=== PATIENT | male | born 1950 | race Caucasian/White ===

== ENCOUNTER 2020-02-16 07:10 | Emergency (ER) | payer OTHER, MEDICARE ==
[~2020-02-16] VITALS: Ht 180.3 cm; Wt 75.0 kg
[2020-02-16 07:31] VITALS: BP 140/78
[2020-02-16] MEDS ORDERED: acetaminophen 325mg tablet PO ONE (07:55)
[2020-02-16] MEDS ORDERED: TETanus/Pertussis (Acell)/Diphther VAC/PF (Tdap-Adult) 0.5ml syringe IMVAC ONE (08:25)
[2020-02-16] MEDS ORDERED: LIDOcaine 1% 30ml preserv. free vial IJ ONE (08:25)
[2020-02-16] MEDS ORDERED: cephalexin 500mg capsule PO ONE (11:45)
[2020-02-16] MEDS ORDERED: HYDR-3965 PO (11:47)
[2020-02-16] MEDS ORDERED: CEPH500C5 PO (11:47)
--- NOTE | 2020-02-16 12:03 | NUR ---
Patient did not received first dose keflex prior to discharge. Patient ready to leave will pick of prescription for keflex and start abx today.
== END 2020-02-16 12:05 | disposition home or self-care (01) ==
LOC: ER 07:10
DX: S61.217A Laceration without foreign body of left little finger without damage to nail, initial encounter (principal); Z72.89 Other problems related to lifestyle; Z79.899 Other long term (current) drug therapy; W26.8XXA Contact with other sharp object(s), not elsewhere classified, initial encounter; Y93.89 Activity, other specified; Y92.89 Other specified places as the place of occurrence of the external cause; Y99.8 Other external cause status
CPT/HCPCS: 12002; 73140; 90471; 90715; 99283